=== PATIENT | male | born 1990 | race African-American/Black ===

== ENCOUNTER 2020-06-11 | Emergency (ER) | payer SELFPAY ==
[~2020-06-11] MED LIST: FIORICET PO; NAPROSYN500 MG PO; ZOFRAN4 MG/TAB PO
[2020-06-11] MEDS ORDERED: TORADOL PO (04:54)
== END 2020-06-11 05:08 | disposition home or self-care (01) | DRG 914 ==
DX: S69.92XA Unspecified injury of left wrist, hand and finger(s), initial encounter (principal); F17.210 Nicotine dependence, cigarettes, uncomplicated; X58.XXXA Exposure to other specified factors, initial encounter; Y93.83 Activity, rough housing and horseplay; Y92.009 Unspecified place in unspecified non-institutional (private) residence as the place of occurrence of the external cause

== ENCOUNTER 2020-07-07 21:55 | Emergency (ER) | payer SELFPAY ==
[~2020-07-07 21:55] MED LIST changes: +TORADOL PO
[2020-07-07] MEDS ORDERED: AMOXICILLIN500 MG PO (23:26)
[2020-07-07] MEDS ORDERED: CELEBREX100 M1 PO (23:26)
[2020-07-07 23:37] VITALS: BP 132/91
== END 2020-07-07 23:44 | disposition home or self-care (01) | DRG 159 ==
LOC: ED 21:55
DX: K02.9 Dental caries, unspecified (principal); F17.210 Nicotine dependence, cigarettes, uncomplicated

== ENCOUNTER 2020-09-02 21:53 | Emergency (ER) | payer SELFPAY ==
[~2020-09-02] VITALS: Ht 182.9 cm; Wt 77.0 kg
[~2020-09-02 21:53] MED LIST changes: +AMOXICILLIN500 MG PO; +CELEBREX100 M1 PO
[2020-09-02 22:42] LABS: HEMATOCRIT 42.9 % (39.0-50.0); HEMOGLOBIN 14.2 g/dl (14.0-18.0); IMMATURE GRANULOCYTES 0.2 % (0.0-5.0); MEAN CORPUSCULAR HGB 30.9 pG CALC (26.0-32.0); MEAN CORPUSCULAR HGB CONC 33.1 g/dL CAL (32.0-36.0); NEUT# 1.62 thou/uL (1.82-7.42); RED BLOOD COUNT 4.6 mill/uL (4.70-6.10); RED CELL DISTRI WIDTH 13.1 % (11.5-15.5)
[2020-09-02 22:43] LABS: URINE BILIRUBIN - DIPSTICK NEGATIVE (NEGATIVE); URINE BLOOD DIPSTICK NEGATIVE (NEGATIVE); URINE CLARITY CLEAR; URINE COLOR YELLOW; URINE GLUCOSE - DIPSTICK NEGATIVE (NEGATIVE); URINE KETONE NEGATIVE (NEGATIVE); URINE LEUK ESTERASE NEGATIVE (Negative); URINE NITRITE - DIPSTICK NEGATIVE (Negative); URINE PROTEIN - DIPSTICK NEGATIVE (NEG-TRACE); URINE SPECIFIC GRAVITY >=1.030; URINE UROBILINOGEN - DIPSTICK 0.2 E.U./dL (0.2)
[2020-09-02 22:50] LABS: MEAN CELL VOLUME 93.3 fL CALC (80.0-100.0)
[2020-09-02 22:53] LABS: ALBUMIN 4.2 g/dL (3.2-5.0); ALKALINE PHOSPHATASE 99 u/l (38-126); ANION GAP 12 (6-22 (CALC)); BUN 23 mg/dL (9-20); BUN/CREATININE RATIO 17 (12-20 (CALC)); CARBON DIOXIDE 26 mmol/l (22-30); CHLORIDE 104 mmol/l (95-108); CREATININE 1.3 mg/dL (0.7-1.3); GFR > 60 ML/MIN (>=60 (CALC)); GFR FOR AFR.AMER. > 60 ML/MIN (>=60 (CALC)); POTASSIUM 4.2 mmol/l (3.5-5.1); SGOT/AST 35 u/l (17-59); SODIUM 139 mmol/l (137-146); TOTAL PROTEIN 7.6 g/dL (6.3-8.2)
[2020-09-03 01:15] VITALS: BP 115/64
== END 2020-09-03 01:21 | disposition home or self-care (01) | DRG 558 ==
LOC: ED 21:53
PROVIDERS: Family Medicine
DX: M62.82 Rhabdomyolysis (principal); F17.210 Nicotine dependence, cigarettes, uncomplicated

== ENCOUNTER 2021-01-29 16:21 | Emergency (ER) | payer OTHER ==
[~2021-01-29] VITALS: Ht 182.9 cm; Wt 70.0 kg
[2021-01-29 17:24] LABS: HEMATOCRIT 38.1 % (39.0-50.0); HEMOGLOBIN 12.6 g/dl (14.0-18.0); MEAN CELL VOLUME 91.6 fL CALC (80.0-100.0); MEAN CORPUSCULAR HGB 30.3 pG CALC (26.0-32.0); MEAN CORPUSCULAR HGB CONC 33.1 g/dL CAL (32.0-36.0); NEUT# 4.4 thou/uL (1.82-7.42); RED BLOOD COUNT 4.16 mill/uL (4.70-6.10); RED CELL DISTRI WIDTH 13.2 % (11.5-15.5)
[2021-01-29 17:42] LABS: ACT PARTIAL THROMBO TIME 21.4 SECONDS (20.0-32.5); PROTHROMBIN TIME 10.2 SECONDS (9.0-12.5)
[2021-01-29 17:59] LABS: ALKALINE PHOSPHATASE 96 u/l (38-126); AMYLASE 84 u/l (30-110); BUN 12 mg/dL (9-20); BUN/CREATININE RATIO 11 (12-20 (CALC)); CARBON DIOXIDE 28 mmol/l (22-30); CHLORIDE 106 mmol/l (95-108); CREATININE 1.1 mg/dL (0.7-1.3); ETHYL ALCOHOL 0 mg/dl (0-30); GFR > 60 ML/MIN (>=60 (CALC)); GFR FOR AFR.AMER. > 60 ML/MIN (>=60 (CALC)); LIPASE 31 u/l (23-300); SGOT/AST 27 u/l (17-59); SODIUM 140 mmol/l (137-146); TOTAL PROTEIN 7.4 g/dL (6.3-8.2)
[2021-01-29 18:01] LABS: ANION GAP 9 (6-22 (CALC)); BILIRUBIN, TOTAL 0.4 mg/dL (0.0-1.4); POTASSIUM 3.3 mmol/l (3.5-5.1)
[2021-01-29 23:14] LABS: URINE BILIRUBIN - DIPSTICK NEGATIVE (NEGATIVE); URINE BLOOD DIPSTICK NEGATIVE (NEGATIVE); URINE COLOR YELLOW; URINE GLUCOSE - DIPSTICK NEGATIVE (NEGATIVE); URINE KETONE NEGATIVE (NEGATIVE); URINE LEUK ESTERASE NEGATIVE (NEGATIVE); URINE PROTEIN - DIPSTICK TRACE mg/dL (NEG-TRACE); URINE SPECIFIC GRAVITY 1.025; URINE UROBILINOGEN - DIPSTICK 0.2 E.U./dL (0.2)
[2021-01-29 23:18] LABS: URINE NITRITE - DIPSTICK NEGATIVE (Negative)
[2021-01-29 23:56] VITALS: BP 128/72
== END 2021-01-30 | disposition home or self-care (01) | DRG 552 ==
LOC: ED 16:21
DX: M54.2 Cervicalgia (principal); M25.511 Pain in right shoulder; R10.11 Right upper quadrant pain; F17.200 Nicotine dependence, unspecified, uncomplicated; V49.50XA Passenger injured in collision with unspecified motor vehicles in traffic accident, initial encounter
CPT/HCPCS: Q9967